=== PATIENT | female | born 1960 | race Caucasian/White ===

== ENCOUNTER 2018-11-06 13:08 | Emergency (ER) | payer OTHER, SELFPAY ==
[2018-11-06 13:13] VITALS: BP 158/104; PULSE 107; RESP 14; TEMP 36.4; O2SAT 100; BMI 27.3
[2018-11-06 15:11] VITALS: PULSE 79
--- NOTE | 2018-11-06 15:46 | DI.RAD.S_ITS ---
PROCEDURE: XR SHOULDER RT MIN 2V INDICATIONS: shoulder pain TECHNIQUE: 3 views of the shoulder were acquired. COMPARISON: None. FINDINGS: Bones: No fractures or dislocations. No suspicious bony lesions. Visualized ribs appear intact. Soft tissues: No suspicious soft tissue calcifications. IMPRESSION: No fracture. No osseous lesion. If there are persistent symptoms or clinical suspicion for pathology, then repeat radiographs or advanced imaging (CT, MRI or bone scan) should be considered for further evaluation. Dictated by: Valarie Bettencourt MD, PhD on 11/06/2018 at 16:17 Approved by: Valarie Bettencourt MD, PhD on 11/06/2018 at 16:18
--- NOTE | 2018-11-06 16:54 | ED.EXTPRO ---
HPI - Extremity Problem <[facility] - Last Filed: 11/06/18 20:02> General Chief complaint: Extremity Problem,Nontraumatic Stated complaint: woke up w severe rt shoul pain, down into arm Time Seen by Provider: 11/06/18 15:39 Source: patient Mode of arrival: ambulatory Limitations: no limitations History of Present Illness HPI Narrative: Patient is a 58-year-old female nonsmoker who presents with chief complaint of right shoulder pain. She states started this morning, and that hurts to move her right arm. She denies any trauma. She does complain of a history of a rotator cuff repair on that side. She denies any numbness or tingling. She does state that the pain radiates from her right shoulder down to her right arm at times. She states she has had hard time lifting and moving her right shoulder. She denies any trauma or falls. She denies any rash. Related Data Home Medications Medication Instructions Recorded Confirmed No Known Home Medications 11/06/18 11/06/18 Allergies Allergy/AdvReac Type Severity Reaction Status Date / Time NSAIDS (Non-Steroidal Allergy Severe Hives Unverified 11/06/18 13:16 Anti-Inflamma [NSAIDS (NON-STEROIDAL ANTI-INFLAMMA] alcohol [ALCOHOL] Allergy Unknown Unverified 12/02/17 12:11 Review of Systems <ALTON Romero - Last Filed: 11/06/18 20:02> Review of Systems GENERAL: Denies chills, fatigue, malaise, fever, sweats. HEENT: Denies sinus pain, ear pain, sore throat, difficulty swallowing, dizziness. RESPIRATORY: Denies dyspnea, cough, wheezing, hemoptysis, sputum. CARDIOVASCULAR: Denies chest pain, palpitations, orthopnea, edema, GASTROINTESTINAL: Denies nausea, vomiting, abdominal pain, diarrhea, constipation, melena. : Denies dysuria, frequency, incontinence, hematuria, urinary retention. MUSCULOSKELETAL: See HPI SKIN: Denies rash, skin lesions, or other NEUROLOGIC: Denies weakness, headache, numbness, change in speech, confusion, seizures, incoordination. PSYCHIATRIC: No concerning psychosocial issues. 12 point review of systems is negative except for those stated above PFSH <ALTON Romero - Last Filed: 11/06/18 20:02> Social History Smoking Status: Never smoker Social History Smoking Status: Never smoker Exam <SHERMAN Romero - Last Filed: 11/06/18 20:02> Narrative Exam Narrative: GENERAL: This is a well-nourished, well-developed patient, in no acute distress HEAD: Atraumatic. Normocephalic. No temporal or scalp tenderness. EYES: Pupils equal round and reactive. Extraocular motions intact. No scleral icterus. No injection or drainage. ENT: Nose without bleeding, purulent drainage or septal hematoma. Throat without erythema, tonsillar hypertrophy or exudate. Uvula midline. Airway patent. NECK: Trachea midline. No JVD or lymphadenopathy. Supple, nontender, no meningeal signs. CARDIOVASCULAR: Regular rate and rhythm GASTROINTESTINAL: Abdomen soft, non-tender, nondistended. No hepato-splenomegaly, or palpable masses. No guarding. EXTREMITIES: Generalized pain to palpation of right shoulder. Patient is able to flex abduct and abduct right shoulder. Patient is able to lift right arm to 90?. No pain on palpation of right elbow. Full range of motion right elbow. Positive radial pulse right hand. BACK: Nontender without deformity or crepitance. No flank tenderness. NEURO: AOx3. SKIN: No rash or erythema. No rash erythema or ecchymosis noted right shoulder. No swelling right shoulder or arm. Initial Vital Signs Initial Vital Signs: Vital Signs Temperature 97.6 F 11/06/18 13:13 Pulse Rate 107 H 11/06/18 13:13 Respiratory Rate 14 11/06/18 13:13 Blood Pressure 158/104 H 11/06/18 13:13 Pulse Oximetry 100 11/06/18 13:13 <Yashira Reilly DO - Last Filed: 11/09/18 08:28> Initial Vital Signs Initial Vital Signs: Vital Signs Temperature 97.6 F 11/06/18 13:13 Pulse Rate 107 H 11/06/18 13:13 Respiratory Rate 14 11/06/18 13:13 Blood Pressure 158/104 H 11/06/18 13:13 Pulse Oximetry 100 11/06/18 13:13 Course <SHERMAN Romero - Last Filed: 11/06/18 20:02> Orders Ordered: ED Orders 11/06/18 15:46 XR shoulder RT min 2V Stat Vital Signs - 8 hr 11/06/18 13:13 11/06/18 15:11 11/06/18 17:28 Temperature 97.6 F Pulse Rate 107 H 76 Pulse Rate [Right Radial] 79 Respiratory Rate 14 16 Blood Pressure 158/104 H 152/86 H Pulse Oximetry 100 99 <Yashira Reilly DO - Last Filed: 11/09/18 08:28> Orders Ordered: ED Orders 11/06/18 15:46 XR shoulder RT min 2V Stat Vital Signs - 8 hr 11/06/18 13:13 11/06/18 15:11 11/06/18 17:28 Temperature 97.6 F Pulse Rate 107 H 76 Pulse Rate [Right Radial] 79 Respiratory Rate 14 16 Blood Pressure 158/104 H 152/86 H Pulse Oximetry 100 99 MDM - Extremity (Nontraumatic) <SHERMAN Romero - Last Filed: 11/06/18 20:02> Imaging Data shoulder xray : Radiologist's impression: [place] [address] XRay Report Signed Patient: Cynthia Martin LMR#: [id number] : 2Acct:[id number] Age/Sex: 58 / FDate of Service: 11/06/18 Loc: ED Accession Number: [id number] Procedure: XR shoulder RT min 2V Ordering Provider: Yashira Yu PROCEDURE: XR SHOULDER RT MIN 2V INDICATIONS: shoulder pain TECHNIQUE: 3 views of the shoulder were acquired. COMPARISON: None. FINDINGS: Bones: No fractures or dislocations. No suspicious bony lesions. Visualized ribs appear intact. Soft tissues: No suspicious soft tissue calcifications. IMPRESSION: No fracture. No osseous lesion. If there are persistent symptoms or clinical suspicion for pathology, then repeat radiographs or advanced imaging (CT, MRI or bone scan) should be considered for further evaluation. Dictated by: Valarie Bettencourt MD, PhD on 11/06/2018 at 16:17 Approved by: Valarie Bettencourt MD, PhD on 11/06/2018 at 16:18 [facility] Narrative Medical decision making narrative: The patient is a 58-year-old female presents with a chief complaint of right shoulder pain and decreased range of motion. She had a normal x-ray today. She does have history of rotator cuff repair on that side. She is neurovascularly intact on exam. I offered her pain medication throughout her stay in the emergency department, which she declined. I discussed the possibility of tendinitis given the pain on her exam, and she is not able to take NSAIDs due to anaphylactic reaction. I offered steroids, which she declined at this point time. I also offered her pain cream or patch which she declined. I discussed at length that she needs to follow up with primary care provider in the next few days. Patient was placed in a sling for comfort. We discussed rest ice compression elevation. I discussed coming back to the emergency department for any acute concerns. Patient had no questions or concerns upon discharge. Discharge Plan Departure Patient Disposition: Home Clinical Impression: Acute shoulder pain Qualifiers: Laterality: right Qualified Code(s): M25.511 - Pain in right shoulder Discharge Date/Time: 11/06/18 17:28 Interventions: ED Discharge Assessment Last Done: 11/06/18 17:28 Instructions: How To Perform RICE (Rest, Ice, Compress, Elevate), DI for Shoulder Pain Activity Restrictions/Additional Instructions: Your x-ray does not show any fracture or bony abnormality. Please use rest ice compression elevation as well as a sling for comfort. Please follow up with primary care provider in the next few days. Please come back to the emergency department for any acute concerns. You may need further imaging as well as her orthopedist. Prescriptions: No Action No Known Home Medications RF: 0 Referrals: Jose Enrique Vaz MD [Primary Care Provider] - <Yashira Reilly DO - Last Filed: 11/09/18 08:28> Cosign ED Attending Cosignature Attestation: I was immediately available in the department for consultation. This documentation has been reviewed and I agree with assessment and plan. Supervised by Yashira Reilly DO
--- NOTE | 2018-11-06 17:00 | ED_ITS ---
HPI - Extremity Problem [facility] - Last Filed: 11/06/18 20:02> General Chief complaint: Extremity Problem,Nontraumatic Stated complaint: woke up w severe rt shoul pain, down into arm Time Seen by Provider: 11/06/18 15:39 Source: patient Mode of arrival: ambulatory Limitations: no limitations History of Present Illness HPI Narrative: Patient is a 58-year-old female nonsmoker who presents with chief complaint of right shoulder pain. She states started this morning, and that hurts to move her right arm. She denies any trauma. She does complain of a history of a rotator cuff repair on that side. She denies any numbness or tingling. She does state that the pain radiates from her right shoulder down to her right arm at times. She states she has had hard time lifting and moving her right shoulder. She denies any trauma or falls. She denies any rash. Related Data Home Medications Medication Instructions Recorded Confirmed No Known Home Medications 11/06/18 11/06/18 Allergies Allergy/AdvReac Type Severity Reaction Status Date / Time NSAIDS (Non-Steroidal Allergy Severe Hives Unverified 11/06/18 13:16 Anti-Inflamma [NSAIDS (NON-STEROIDAL ANTI-INFLAMMA] alcohol [ALCOHOL] Allergy Unknown Unverified 12/02/17 12:11 Review of Systems <ALTON Romero - Last Filed: 11/06/18 20:02> Review of Systems GENERAL: Denies chills, fatigue, malaise, fever, sweats. HEENT: Denies sinus pain, ear pain, sore throat, difficulty swallowing, dizziness. RESPIRATORY: Denies dyspnea, cough, wheezing, hemoptysis, sputum. CARDIOVASCULAR: Denies chest pain, palpitations, orthopnea, edema, GASTROINTESTINAL: Denies nausea, vomiting, abdominal pain, diarrhea, constipation, melena. : Denies dysuria, frequency, incontinence, hematuria, urinary retention. MUSCULOSKELETAL: See HPI SKIN: Denies rash, skin lesions, or other NEUROLOGIC: Denies weakness, headache, numbness, change in speech, confusion, seizures, incoordination. PSYCHIATRIC: No concerning psychosocial issues. 12 point review of systems is negative except for those stated above PFSH <ALTON Romero - Last Filed: 11/06/18 20:02> Social History Smoking Status: Never smoker Social History Smoking Status: Never smoker Exam <SHERMAN Romero - Last Filed: 11/06/18 20:02> Narrative Exam Narrative: GENERAL: This is a well-nourished, well-developed patient, in no acute distress HEAD: Atraumatic. Normocephalic. No temporal or scalp tenderness. EYES: Pupils equal round and reactive. Extraocular motions intact. No scleral icterus. No injection or drainage. ENT: Nose without bleeding, purulent drainage or septal hematoma. Throat without erythema, tonsillar hypertrophy or exudate. Uvula midline. Airway patent. NECK: Trachea midline. No JVD or lymphadenopathy. Supple, nontender, no meningeal signs. CARDIOVASCULAR: Regular rate and rhythm GASTROINTESTINAL: Abdomen soft, non-tender, nondistended. No hepato- splenomegaly, or palpable masses. No guarding. EXTREMITIES: Generalized pain to palpation of right shoulder. Patient is able to flex abduct and abduct right shoulder. Patient is able to lift right arm to 90?. No pain on palpation of right elbow. Full range of motion right elbow. Positive radial pulse right hand. BACK: Nontender without deformity or crepitance. No flank tenderness. NEURO: AOx3. SKIN: No rash or erythema. No rash erythema or ecchymosis noted right shoulder. No swelling right shoulder or arm. Initial Vital Signs Initial Vital Signs: Vital Signs Temperature 97.6 F 11/06/18 13:13 Pulse Rate 107 H 11/06/18 13:13 Respiratory Rate 14 11/06/18 13:13 Blood Pressure 158/104 H 11/06/18 13:13 Pulse Oximetry 100 11/06/18 13:13 <Yashira Reilly DO - Last Filed: 11/09/18 08:28> Initial Vital Signs Initial Vital Signs: Vital Signs Temperature 97.6 F 11/06/18 13:13 Pulse Rate 107 H 11/06/18 13:13 Respiratory Rate 14 11/06/18 13:13 Blood Pressure 158/104 H 11/06/18 13:13 Pulse Oximetry 100 11/06/18 13:13 Course <SHERMAN Romero - Last Filed: 11/06/18 20:02> Orders Ordered: ED Orders 11/06/18 15:46 XR shoulder RT min 2V Stat Vital Signs - 8 hr 11/06/18 13:13 11/06/18 15:11 11/06/18 17:28 Temperature 97.6 F Pulse Rate 107 H 76 Pulse Rate [Right Radial] 79 Respiratory Rate 14 16 Blood Pressure 158/104 H 152/86 H Pulse Oximetry 100 99 <Yashira Reilly DO - Last Filed: 11/09/18 08:28> Orders Ordered: ED Orders 11/06/18 15:46 XR shoulder RT min 2V Stat Vital Signs - 8 hr 11/06/18 13:13 11/06/18 15:11 11/06/18 17:28 Temperature 97.6 F Pulse Rate 107 H 76 Pulse Rate [Right Radial] 79 Respiratory Rate 14 16 Blood Pressure 158/104 H 152/86 H Pulse Oximetry 100 99 MDM - Extremity (Nontraumatic) <SHERMAN Romero - Last Filed: 11/06/18 20:02> Imaging Data shoulder xray : Radiologist's impression: [place] [address] XRay Report Signed Patient: Cynthia Martin LMR#: [id number] : 2Acct:[id number] Age/Sex: 58 / FDate of Service: 11/06/18 Loc: ED Accession Number: [id number] Procedure: XR shoulder RT min 2V Ordering Provider: Yashira Yu PROCEDURE: XR SHOULDER RT MIN 2V INDICATIONS: shoulder pain TECHNIQUE: 3 views of the shoulder were acquired. COMPARISON: None. FINDINGS: Bones: No fractures or dislocations. No suspicious bony lesions. Visualized ribs appear intact. Soft tissues: No suspicious soft tissue calcifications. IMPRESSION: No fracture. No osseous lesion. If there are persistent symptoms or clinical suspicion for pathology, then repeat radiographs or advanced imaging (CT, MRI or bone scan) should be considered for further evaluation. Dictated by: Valarie Bettencourt MD, PhD on 11/06/2018 at 16:17 Approved by: Valarie Bettencourt MD, PhD on 11/06/2018 at 16:18 [facility] Narrative Medical decision making narrative: The patient is a 58-year-old female presents with a chief complaint of right shoulder pain and decreased range of motion. She had a normal x-ray today. She does have history of rotator cuff repair on that side. She is neurovascularly intact on exam. I offered her pain medication throughout her stay in the emergency department, which she declined. I discussed the possibility of tendinitis given the pain on her exam, and she is not able to take NSAIDs due to anaphylactic reaction. I offered steroids, which she declined at this point time. I also offered her pain cream or patch which she declined. I discussed at length that she needs to follow up with primary care provider in the next few days. Patient was placed in a sling for comfort. We discussed rest ice compression elevation. I discussed coming back to the emergency department for any acute concerns. Patient had no questions or concerns upon discharge. Discharge Plan Departure Patient Disposition: Home Clinical Impression: Acute shoulder pain Qualifiers: Laterality: right Qualified Code(s): M25.511 - Pain in right shoulder Discharge Date/Time: 11/06/18 17:28 Interventions: ED Discharge Assessment Last Done: 11/06/18 17:28 Instructions: How To Perform RICE (Rest, Ice, Compress, Elevate), DI for Shoulder Pain Activity Restrictions/Additional Instructions: Your x-ray does not show any fracture or bony abnormality. Please use rest ice compression elevation as well as a sling for comfort. Please follow up with primary care provider in the next few days. Please come back to the emergency department for any acute concerns. You may need further imaging as well as her orthopedist. Prescriptions: No Action No Known Home Medications RF: 0 Referrals: Jose Enrique Vaz MD [Primary Care Provider] - <Yashira Reilly DO - Last Filed: 11/09/18 08:28> Cosign ED Attending Cosignature Attestation: I was immediately available in the department for consultation. This documentation has been reviewed and I agree with assessment and plan. Supervised by Yashira Reilly DO
[2018-11-06 17:28] VITALS: BP 152/86; PULSE 76; RESP 16; O2SAT 99
== END 2018-11-06 17:28 | disposition home or self-care (01) ==
PROVIDERS: Emergency Provider Nurse Practitioner Family; PCP Internal Medicine
DX: M25.511 Pain in right shoulder (principal)
CPT/HCPCS: 73030; 99282; 99283